=== PATIENT | male | born 1990 | race Caucasian/White ===

== ENCOUNTER 2021-06-16 12:26 | Emergency (ER) | payer MEDICAID, OTHER ==
[~2021-06-16] VITALS: Ht 172.7 cm; Wt 91.0 kg
[2021-06-16] MEDS ORDERED: TRAMADOL 50MG TABLET PO ONE (14:45)
[2021-06-16] MEDS ORDERED: ACETAMINOPHEN 325MG TABLET PO ONE (14:45)
[2021-06-16] MEDS ORDERED: ACET-2708 MT (15:59)
[2021-06-16] MEDS ORDERED: IBUP-2028 MT (15:59)
[2021-06-16 16:14] VITALS: BP 132/78
== END 2021-06-16 16:14 | disposition home or self-care (01) ==
LOC: ER 12:26
DX: S20.219A Contusion of unspecified front wall of thorax, initial encounter (principal); R94.31 Abnormal electrocardiogram [ECG] [EKG]; V49.49XA Driver injured in collision with other motor vehicles in traffic accident, initial encounter; Y93.89 Activity, other specified; Y92.488 Other paved roadways as the place of occurrence of the external cause
CPT/HCPCS: 71046; 93005; 99283